=== PATIENT | female | born 1990 | race Two or more races ===

== ENCOUNTER 2016-08-13 10:07 | Inpatient (IN) | payer OTHER ==
[~2016-08-13] VITALS: Ht 165.1 cm; Wt 65.8 kg
--- NOTE | 2016-08-13 10:07 | NUR ---
R U Q ABD PAIN WITH NAUSEA AND VOMITING LAST NIGHT. NAD NOTED. PT AAO X4, AMB WITH STEADY GAIT. RR EVEN AND UNLABORED. VSS. PT PLACED IN GOWN, CONTINUE TO MONITOR. AWAITING MD FOR EVAL.
[2016-08-13 11:03] LABS: APPEARANCE,URINE CLEAR (CLEAR); BILIRUBIN,URINE NEGATIVE (NEGATIVE); BLOOD, URINE 3+ Ery/uL (NEGATIVE); COLOR,URINE YELLOW (YELLOW); KETONES,URINE NEGATIVE (NEGATIVE); LEUKOCYTE ESTERASE ,URINE NEGATIVE (NEGATIVE); NITRITE, URINE NEGATIVE (NEGATIVE); PROTEIN,URINE NEGATIVE (NEGATIVE); UGLUCOSE NEGATIVE (NEGATIVE); UROBILINOGEN,URINE 0.2 EU/dL (0.2)
[2016-08-13 11:06] LABS: PREGNANCY TEST URINE QUAL NEGATIVE (NEGATIVE)
[2016-08-13 11:09] LABS: ADD URINE CULTURE NO; BACTERIA,URINE None seen /HPF (None Seen); SQUAMOUS EPITHELIAL CELL,UR Few /HPF (None Seen)
[2016-08-13 11:15] LABS: BASOPHILS % (AUTO) 0.3 % (0.0-2.0); EOSINOPHILS # (AUTO) 0.1 /CMM (0.0-0.7); EOSINOPHILS % (AUTO) 0.7 % (0.0-6.0); HEMATOCRIT 36 % (33-45); HEMOGLOBIN 11.8 g/dL (11.5-14.8); LYMPHOCYTES # (AUTO) 1.2 /CMM (0.8-4.8); LYMPHOCYTES % (AUTO) 10.8 % (20.0-44.0); MEAN CORPUSCULAR HEMOGLOBIN 27 PG (26.0-33.0); MEAN CORPUSCULAR HGB CONC 33 g/dl (31.0-36.0); MEAN CORPUSCULAR VOLUME 82 fL (82-100); MONOCYTES # (AUTO) 0.6 /CMM (0.1-1.30); NEUTROPHILS # (AUTO) 9.5 /CMM (1.8-8.9); NEUTROPHILS % (AUTO) 83.2 % (43.0-81.0); PLATELET COUNT (AUTO) 465 /CMM (150-450); RDW COEFFICIENT OF VARIATION 13.7 (11.5-15.0); RED BLOOD CELL COUNT(AUTO) 4.36 MIL/uL (4.0-5.2); WHITE BLOOD COUNT (AUTO) 11.4 K/uL (4.3-11.0)
[2016-08-13 11:25] LABS: CALCIUM, SERUM 8.2 mg/dL (8.5-10.1); CREATININE 0.7 mg/dL (0.6-1.3)
[2016-08-13 11:31] LABS: ALBUMIN 3.4 g/dL (3.4-5.0); BILIRUBIN,DIRECT 0.1 mg/dL (0.0-0.2); BILIRUBIN,TOTAL 0.6 mg/dL (0.2-1.0); TOTAL PROTEIN, SERUM 6.9 g/dL (6.4-8.2)
--- NOTE | 2016-08-13 12:13 | NUR ---
PAGED STEPHANIE VILLARREAL
[2016-08-13] MEDS ORDERED: ONDANSETRON HCL/PF 4 MG/2 ML VIAL ONE (12:22)
[2016-08-13] MEDS ORDERED: MORPHINE SULFATE INJ 4 MG/ML DISP.SYRIN ONE (12:22)
[2016-08-13] MEDS ORDERED: IV SET PRIMARY PUMP SET 1 EA INFUS.SET MC ONE ×2 (12:23→17:30)
[2016-08-13] MEDS ORDERED: MORPHINE SULFATE INJ 2 MG/ML DISP.SYRIN IV ONE (12:30)
[2016-08-13] MEDS ORDERED: ONDANSETRON HCL/PF 4 MG/2 ML VIAL IVP ONE (12:30)
[2016-08-13] MEDS ORDERED: PIPERACILLIN /TAZOBACTAM 3.375 G in IV D5W 50 ML IV ONE (12:30)
[2016-08-13 12:59] LABS: INR 0.94 (0.87-1.13)
--- NOTE | 2016-08-13 13:00 | NUR ---
REPORT GIVEN TO ONEL AYOUB FOR GIL
--- NOTE | 2016-08-13 13:06 | NUR ---
DR MALCOLM ON THE PHONE WITH DR. MORA
--- NOTE | 2016-08-13 13:07 | NUR ---
DR MALCOLM ON THE PHONE WITH DR PEMBERTON (GEN. SURGEON REQUESTED BY STEPHANIE GLASER)
--- NOTE | 2016-08-13 13:15 | NUR ---
PER DR MORA WILL CONSULT DR PEMBERTON FOR SURGERY
--- NOTE | 2016-08-13 13:45 | NUR ---
MS RN NOTES PATIENT IS ON FLOOR. ARRIVED VIA WHEEL CHAIR. NO SOB OR DISTRESS NOTED AT THIS TIME. PATIENT DENIES PAIN. PATIENT ORIENTED TO ROOM AND CALL LIGHT. VITALS TAKEN AND RECORDED. SKIN WILL BE ASSESSED AND PICTURES TAKEN. BELONGINGS LIST CHECKED AND ACCOUNTED FOR. CALLED DR MORA'S ANSWERING SERVICE FOR ORDERS; WAITING FOR RETURN CALL. BED IN A LOW POSITION, CALL LIGHT WITHIN PATIENT REACH. WILL CONTINUE TO MONITOR.
[2016-08-13 14:30] VITALS: BP 112/65
--- NOTE | 2016-08-13 14:55 | NUR ---
MS RN NOTES CALL RECEIVED FROM DR MORA WITH ORDERS. WILL PLACE ALL ORDERS PER MD. PATIENT IS NOW IN SURGERY.
[2016-08-13] MEDS ORDERED: MIDAZOLAM HCL 2 MG/2ML VIAL ONE (15:14)
[2016-08-13] MEDS ORDERED: ROCURONIUM BROMIDE 50 MG/5 ML ONE (15:14)
[2016-08-13] MEDS ORDERED: FENTANYL PF 100MCG/2ML AMPUL ONE (15:14)
[2016-08-13] MEDS ORDERED: Potassium Chloride 20 MEQ in IV D5/ 0.9% NACL 1,000 ML IV PRN (16:00)
[2016-08-13] MEDS ORDERED: oxyCODONE/APAP (5/325 MG) 1 UDTAB TABLET PO PRN (16:00)
[2016-08-13] MEDS ORDERED: HYDROMORPHONE 1 MG/1 ML DISP.SYRIN IV PRN (16:00)
[2016-08-13] MEDS ORDERED: ZOLPIDEM TARTRATE 5 MG TABLET PO PRN (16:00)
[2016-08-13] MEDS ORDERED: ONDANSETRON HCL/PF 4 MG/2 ML VIAL IV PRN (16:00)
[2016-08-13] MEDS ORDERED: ACETAMINOPHEN 650 MG/20.3 ML UDC NG PRN (16:00)
[2016-08-13] MEDS ORDERED: HYDROMORPHONE INJ 2 MG/ML DISP.SYRIN ONE (16:14)
[2016-08-13] MEDS ORDERED: BUPIVACAINE MPF W/EPI 0.25% 30 ML VIAL ONE (16:16)
[2016-08-13] MEDS ORDERED: ANESTHESIA TRAY IN PYXIS 1 EA TRAY MC ONE (16:16)
[2016-08-13] MEDS ORDERED: MORPHINE SULFATE INJ 2 MG/ML DISP.SYRIN IV PRN (16:30)
[2016-08-13] MEDS ORDERED: MORPHINE SULFATE INJ 4 MG/ML DISP.SYRIN IV PRN (16:30)
[2016-08-13] MEDS ORDERED: HYDROCODONE/APAP 5/325MG 1 EACH TABLET PO PRN (16:30)
[2016-08-13] MEDS ORDERED: IV D5/0.45 NACL W/20 MEQ KCL 1L IV PRN ×2 (16:30)
[2016-08-13] MEDS ORDERED: ONDANSETRON HCL/PF 4 MG/2 ML VIAL IVP PRN (16:30)
--- NOTE | 2016-08-13 17:13 | NUR ---
MS RN NOTES PER DR MORA, WANDA MORPHINE, ONLY USE DILAUDID ORDERED. WILL PLACE ORDERS.
[2016-08-13] MEDS ORDERED: SECONDARY IV SET 1 EA INFUS.SET MC ONE (17:30)
[2016-08-13] MEDS: ANCEF 1 GM/50 ML D5W IV SCH ×2 (17:52)
[2016-08-13] MEDS ORDERED: PIPERACILLIN /TAZOBACTAM 3.375 G in IV D5W 50 ML IV SCH (18:00)
--- NOTE | 2016-08-13 19:30 | NUR ---
RN NOTES RECEIVED PT. AWAKE ON BED, A/OX4, AMBULATORY, DRESSING ON THE ABDOMEN DRY AND INTACT, DENIES PAIN, NO SOB, IV FLUID [id number]/2 NS WITH 20MEQ OF KCL @ 75ML/HR, CALL LIGHT WITHIN REACH SIDERAILS UPX2 CONTINUE TO MONITOR
--- NOTE | 2016-08-13 19:31 | NUR ---
MS RN CLOSING NOTES NO SIGNIFICANT CHANGES IN PATIENT CONDITION THROUGHOUT THE SHIFT. NO SOB OR DISTRESS NOTED AT THIS TIME. PATIENT DENIES PAIN. BED IN A LOW POSITION, CALL LIGHT WITHIN PATIENT REACH. WILL ENDORSE FOR GIL.
[2016-08-13 20:00] VITALS: BP 113/67
[2016-08-14] MEDS: ANCEF 1 GM/50 ML D5W IV SCH ×4 (00:55→08:17)
[2016-08-14] MEDS: HYDROCODONE/APAP 5/325MG 1 EACH TABLET PO PRN ×2 (03:16→10:16)
--- NOTE | 2016-08-14 03:22 | NUR ---
RN NOTES COMPLAINED OF MILD ABDOMINAL PAIN- INCISION SITE NORCO 5/325MG PO GIVEN ORDERED, V/S STABLE
[2016-08-14 06:43] LABS: BASOPHILS % (AUTO) 0.3 % (0.0-2.0); EOSINOPHILS % (AUTO) 0.2 % (0.0-6.0); HEMATOCRIT 34 % (33-45); HEMOGLOBIN 11.4 g/dL (11.5-14.8); LYMPHOCYTES # (AUTO) 1.3 /CMM (0.8-4.8); MEAN CORPUSCULAR HEMOGLOBIN 28 PG (26.0-33.0); MEAN CORPUSCULAR HGB CONC 34 g/dl (31.0-36.0); MEAN CORPUSCULAR VOLUME 82 fL (82-100); MONOCYTES # (AUTO) 0.7 /CMM (0.1-1.30); MONOCYTES % (AUTO) 5.7 % (2.0-12.0); NEUTROPHILS # (AUTO) 9.9 /CMM (1.8-8.9); NEUTROPHILS % (AUTO) 82.8 % (43.0-81.0); PLATELET COUNT (AUTO) 429 /CMM (150-450); RDW COEFFICIENT OF VARIATION 13.7 (11.5-15.0); RED BLOOD CELL COUNT(AUTO) 4.16 MIL/uL (4.0-5.2); WHITE BLOOD COUNT (AUTO) 11.9 K/uL (4.3-11.0)
--- NOTE | 2016-08-14 06:51 | NUR ---
RN NOTES AWAKE, IV FLUID RUNNING IV LINE PATENT NO REDNESS OR SWOLLEN, DRESSING DRY AND INTACT, DENIES PAIN AT THIS TIME, NO SOB, CALL LIGHT WITHIN REACH, SIDERAILS UPX2 PT. NEEDS ATTENDED
[2016-08-14 07:02] LABS: BILIRUBIN,TOTAL 0.6 mg/dL (0.2-1.0); CALCIUM, SERUM 8.4 mg/dL (8.5-10.1); CREATININE 0.6 mg/dL (0.6-1.3); POTASSIUM 4.3 mmol/L (3.5-5.1); TOTAL PROTEIN, SERUM 6.5 g/dL (6.4-8.2)
[2016-08-14 08:00] VITALS: BP 110/72
[2016-08-14] MEDS ORDERED: SECONDARY IV SET 1 EA INFUS.SET MC ONE (08:07)
[2016-08-14] MEDS ORDERED: AMOX-430 PO (08:28)
[2016-08-14] MEDS ORDERED: OXYC-128 PO (08:28)
--- NOTE | 2016-08-14 09:00 | NUR ---
MS OPENING NOTES PATIENT IS AWAKE AND ALERT RESTING COMFORTABLY IN BED. BED IS AT LOWEST POINT WITH SIDE RAILS UP X2, AND CALL LIGHT WITHIN REACH. WILL CONTINUE TO ASSESS, MONITOR PATIENT FOR PASSING GAS, AND IMPLEMENT CARE PLAN.
[2016-08-14] MEDS ORDERED: BISACODYL (5 MG) 5 MG TABLET.DR PO ONE (10:00)
--- NOTE | 2016-08-14 14:40 | NUR ---
DISCHARGE NOTES DISCHARGE INSTRUCTIONS WERE GIVEN. QUESTIONS/CONCERNS WERE ADDRESSED. PATIENT VERBALIZED UNDERSTANDING. IV REMOVED/CATHETER WAS INTACT. PRESSURE DRESSING APPLIED. PATIENT VITAL SIGN WAS STABLE.
== END 2016-08-14 13:00 | disposition home or self-care (01) | DRG 263 ==
LOC: ER 10:11 → MEDSG2 12:35
PROVIDERS: ADMIT Internal Medicine; ATTEND Internal Medicine
PROC: 0FT44ZZ Resection of Gallbladder, Percutaneous Endoscopic Approach (ICD-10-PCS; principal; 2016-08-13 15:30)
DX: K80.00 Calculus of gallbladder with acute cholecystitis without obstruction (principal)
CPT/HCPCS: 36415; 71010-TC; 76705-TC; 80048-TC; 80053-TC; 80076-TC; 81000-TC; 83605-TC; 83690-TC; 84703-TC; 85025-TC; 85730-TC; 87040-TC; 87081-TC; 88304-TC; 88305-TC; A4606; J0690; J1100; J1170; J1885; J2250; J2270; J2370; J2405; J2543; J2704; J3010; J3480; J3490; J7042; J7060; Z7610